=== PATIENT | female | born 1980 | race Two or more races ===

== ENCOUNTER 2021-12-15 20:20 | Emergency (ER) | payer MEDICAID, OTHER ==
[~2021-12-15] VITALS: Ht 154.9 cm; Wt 109.5 kg
[2021-12-15 23:27] LABS: Urine Amorphous Crystal FEW /hpf (None Seen); Urine Bacteria NONE SEEN /hpf (None Seen); Urine Blood Negative /uL (Negative); Urine Hyaline Cast FEW /lpf (0 - 2); Urine Mucus FEW (None Seen); Urine Specific Gravity 1.019 (1.001-1.035); Urine WBC 121 /hpf (0 - 5); Urine WBC Clumps PRESENT /hpf (None Seen)
[2021-12-16 02:15] VITALS: BP 132/78
[2021-12-16] MEDS ORDERED: CEPH-510 PO (03:08)
== END 2021-12-16 03:32 | disposition home or self-care (01) ==
LOC: EDBD 20:25 → ER 20:25
DX: N39.0 Urinary tract infection, site not specified (principal); L73.9 Follicular disorder, unspecified; Z79.899 Other long term (current) drug therapy
CPT/HCPCS: 81001; 81025